=== PATIENT | female | born 1995 | race Caucasian/White ===

== ENCOUNTER 2022-05-26 08:58 | Day surgery (SDC) | payer MEDICAID ==
[2022-05-26] MEDS ORDERED: Acetaminophen 500 MG Tab PO ONE (09:15)
[2022-05-26] MEDS ORDERED: Dextrose 5%-Lactated Ringers 1,000 ML IV SCH (09:30)
[2022-05-26] MEDS ORDERED: Meropenem 500 MG in Sodium Chloride 0.9% 50 ML IV ONE (10:15)
[2022-05-26] MEDS ORDERED: Lidocaine 1% with EPINEPHrine 1:100,000 50 ML MDV ONE (10:16)
[2022-05-26] MEDS ORDERED: Bupivacaine 0.5% 30 ML SDV ONE (10:16)
[2022-05-26] MEDS ORDERED: Bupivacaine 0.5%/EPINEPHrine 1:200,000 50 ML MDV ONE (10:16)
[2022-05-26] MEDS ORDERED: Midazolam 1 MG/ML 2 ML SDV ONE (10:18)
[2022-05-26] MEDS ORDERED: fentaNYL 100 MCG/2 ML SDV ONE (10:18)
[2022-05-26] MEDS ORDERED: Propofol 200 MG/20 ML SDV ONE (10:18)
[2022-05-26] MEDS ORDERED: Bacitracin Oint 1 GM U/D Packet ONE (11:14)
== END 2022-05-26 12:38 | disposition home or self-care (01) ==
LOC: JP.SDS 08:58
PROVIDERS: ATTEND Surgery
DX: L72.0 Epidermal cyst (principal); Z88.1 Allergy status to other antibiotic agents
CPT/HCPCS: 11403; 12032; 81025; 88304; A9270; J2250; J2704; J3010; J3490; J7121